=== PATIENT | female | born 1980 | race Hispanic/Latino ===

== ENCOUNTER → 2017-04-14 | Outpatient (CLI) | payer BC ==
--- NOTE | 2017-04-14 12:20 | Diagnostic Imaging Report ---
PROCEDURE:KNEE THREE VIEWS BILATERAL COMPARISON:None. INDICATIONS:ARTHRITIS FINDINGS: Right knee: No joint space narrowing or osteophytosis. No soft tissue calcifications. No joint effusion. Left knee: No joint space narrowing or osteophytosis. No soft tissue calcifications. No joint effusion. Mineralization is normal. No focal osseous lesions. CONCLUSION: No radiographic findings of arthritis. Dictated by: Estrella Sorto M.D. on 04/14/2017 at 12:20 Electronically approved by: Estrella Sorto M.D. on 04/14/2017 at 12:20
== END ==
LOC: RAD 09:59
PROVIDERS: ATTEND Family Medicine
DX: M25.562 Pain in left knee (principal); M25.561 Pain in right knee